=== PATIENT | female | born 1980 | race American Indian/Alaskan Native ===

== ENCOUNTER 2019-02-06 11:02 | Day surgery (SDC) | payer OTHER ==
[2019-02-06] MEDS ORDERED: NACL 0.9% 1000 ML 1,000 ML IV SCH (11:40)
--- NOTE | 2019-02-06 13:14 | Anesthesia Consultation ---
Anesthesia Consult and Med Hx Date of service: 02/06/19 - Airway Anesthetic Teeth Evaluation: Good ROM Head & Neck: Adequate Mental/Hyoid Distance: Adequate Mallampati Class: Class III Intubation Access Assessment: Possibly Difficult - Pre-Operative Health Status ASA Pre-Surgery Classification: ASA2 Proposed Anesthetic Plan: MAC - Pulmonary Hx Sleep Apnea: Yes (CPAP) - Gastrointestinal Hx Ulcer: No (h/o colon tumor, s/p hemicolectomy) - Other Systems Hx Cancer: Yes (colon)
--- NOTE | 2019-02-06 13:14 | Anesthesia Day of Surgery ---
Anesthesia Day of Surgery - Day of Surgery Patient Examined: Yes Patient H&P Reviewed: Yes Patient is NPO: Yes
[2019-02-06] MEDS ORDERED: DIPRIVAN 10 MG/ML IV ONE (13:42)
--- NOTE | 2019-02-06 14:20 | Operative Report ---
Operative Report Operative Report: Procedure: Colonoscopy with Submucosal Injection, Cold Snare polypectomy, Avulsion with hot biopsy forceps and ablation of polypectomy site. Hemoclip Application. Attending physician: Frank Baum M.D. Grinder Operator External Tool: Frank Baum M.D. Indication: Patient is a 38-year-old female who presents for colonoscopy. Patient has a family history of colon polyps and also past history of cecal carcinoid, status post right hemicolectomy. This colonoscopy serves to evaluate patient so that treatment may be directed based on the findings. Consent: Informed consent was obtained after advising the patient and family regarding nature of this procedure, its indications, potential benefits as well as possible complications including but not limited to bleeding perforation and adverse reaction to medication, infection as well as other cardiopulmonary complications. An informed written and verbal consent was then obtained after due opportunity was provided for questions and answers. Monitoring: Patient was monitored continuously with pulse oximetry and electrocardiographic recordings as well as blood pressure recordings. Vital signs remained stable throughout this procedure with no untoward events. Preoperative assessment: Patient was assessed immediately prior to this procedure for capacity to tolerate monitored anesthesia care and moderate sedation as well as general anesthesia. Patient's ASA classification is 2, Mallampati class is 2, Hyomental distance is 3. Instrument: Olympus video colonoscope CF-HQ 190L Medications: Propofol given intravenously in divided doses. For details please refer to anesthesia records. Description of procedure: Patient was placed in the left lateral decubitus position after achieving sedation, a digital rectal examination was performed following which the colonoscope was introduced into the anal verge and advanced to the ileocolonic anastomosis. The colonoscope was subsequently withdrawn with careful inspection of all mucosal surfaces. Patient tolerated this procedure well and was subsequently taken to the recovery room. The following findings were noted. Findings: [place] bowel preparation scale score : 6. : The overall preparation is deemed adequate with a scale score of n 6. The withdrawal time from the cecum was greater than 6 minutes. The ileocolonic anastomosis was normal. Patient had a flat 8 mm polyp in the sigmoid colon which was elevated with submucosal injection of saline and removed by cold snare polypectomy and retrieved. A hot biopsy was used to ablate the polypectomy site and also for avulsion of any residual polyp at the polypectomy site. A Hemoclip was applied at the polypectomy site. On a retroflexed view of the anal verge, patient had internal hemorrhoids. Impression: Flat sigmoid colon polyp status post submucosal injection cold snare polypectomy, ablation of polyp site with avulsion of residual polyp, Hemoclip application Internal hemorrhoids. Plan: Follow pathology report. High-fiber diet. Repeat colonoscopy in 5 years
--- NOTE | 2019-02-06 14:21 | Discharge Summary ---
Short Stay Discharge Plan Activity: advance as tolerated Weight Bearing Status: Weight Bear as Tolerated Diet: regular Follow up with: [facility] [Primary Care Provider] - 7 Days
[2019-02-06] MEDS ORDERED: XYLOCAINE MPF 2% ONE (14:30)
[2019-02-06 14:49] VITALS: BP 122/72
== END 2019-02-06 11:03 | disposition home or self-care (01) ==
LOC: GIO 11:02
PROVIDERS: ATTEND Internal Medicine Gastroenterology
DX: Z12.11 Encounter for screening for malignant neoplasm of colon (principal); D12.5 Benign neoplasm of sigmoid colon; K64.8 Other hemorrhoids; G47.30 Sleep apnea, unspecified; Z83.71 Family history of colonic polyps; Z85.038 Personal history of other malignant neoplasm of large intestine; Z79.899 Other long term (current) drug therapy; Z98.890 Other specified postprocedural states
CPT/HCPCS: 81025; 88305; J2704; J7030